=== PATIENT | male | born 1965 | race Caucasian/White ===

== ENCOUNTER 2018-01-30 13:57 | Emergency (ER) | payer SELFPAY ==
--- NOTE | 2018-01-30 14:49 | ER ---
Nurse's Notes [facility] Name: Arias Spann Age: 52 yrs Sex: Male : 1965 Arrival Date: 01/30/2018 Time: 14:02 Bed 24 Private MD: Diagnosis: Dermatitis, unspecified Presentation: 01/30 14:04 Presenting complaint: Patient states: i have a rash all over my body and it started a hj year ago; it hurts;. Transition of care: patient was not received from another setting of care. Onset of symptoms was January 30, 2018. Initial Sepsis Screen: Does the patient meet any 2 criteria? No. Patient's initial sepsis screen is negative. Does the patient have a suspected source of infection? No. Patient's initial sepsis screen is negative. Care prior to arrival: None. 14:04 Method Of Arrival: Ambulatory 14:04 Acuity: EDMUND 4 hj Triage Assessment: 14:05 General: Appears in no apparent distress. uncomfortable, Behavior is calm, cooperative, hj appropriate for age. Pain: Complains of pain in bosy where the rash. Historical: - Allergies: 14:05 No Known Allergies; hj - Home Meds: 14:05 None [Active]; hj - PMHx: 14:05 None; hj - PSHx: 14:05 None; hj - Immunization history:: Adult Immunizations up to date. - Family history:: not pertinent. Screenin:30 Abuse screen: Denies threats or abuse. Denies injuries from another. Nutritional aj1 screening: No deficits noted. Tuberculosis screening: No symptoms or risk factors identified. 15:58 Fall Risk None identified. aj1 Assessment: 14:30 General: Appears in no apparent distress. comfortable, Behavior is calm, cooperative, aj1 appropriate for age. Pain: Denies pain. Neuro: Level of Consciousness is awake, alert, obeys commands, Oriented to person, place, time, situation. Cardiovascular: Patient's skin is warm and dry. Respiratory: Airway is patent Respiratory effort is even, unlabored, Respiratory pattern is regular, symmetrical. GI: No signs and/or symptoms were reported involving the gastrointestinal system. : No signs and/or symptoms were reported regarding the genitourinary system. EENT: No signs and/or symptoms were reported regarding the EENT system. Derm: Rash noted that is itchy, on chest, pelvis, right arm, left arm, right leg and left leg. Musculoskeletal: Circulation, motion, and sensation intact. 15:00 Reassessment: Patient states that he showed Dr. Ash the rash on his arms, legs, aj1 and chest, but states that he also has a rash to his groin that he would like Dr. Ash to see. Notified Dr. Ash of patient request. 15:30 Reassessment: Patient appears in no apparent distress at this time. No changes from aj1 previously documented assessment. Patient and/or family updated on plan of care and expected duration. Pain level reassessed. Patient is alert, oriented x 3, equal unlabored respirations, skin warm/dry/pink. Vital Signs: 14:05 BP 117 / 78; Pulse 91; Resp 18; Temp 98.4(TE); Pulse Ox 98% on R/A; Weight 81.65 kg; hj Height 5 ft. 4 in. (162.56 cm); 15:58 BP 105 / 62; Pulse 88; Resp 18; Pulse Ox 99% ; aj1 14:05 Body Mass Index 30.90 (81.65 kg, 162.56 cm) ED Course: 14:02 Patient arrived in ED. sb2 14:05 Triage completed. 14:05 Arm band placed on left wrist. 14:23 Dia Mendoza, RN is Primary Nurse. aj1 14:30 Patient has correct armband on for positive identification. Bed in low position. Call aj1 light in reach. Side rails up X 1. 14:30 No provider procedures requiring assistance completed. aj1 14:34 Vito Ash MD is Attending Physician. [facility] 15:58 Patient did not have IV access during this emergency room visit. aj1 Administered Medications: No medications were administered Outcome: 14:48 Discharge ordered by . [facility] 15:58 Discharged to home ambulatory. aj1 15:58 Condition: good 15:58 Discharge instructions given to patient, Instructed on discharge instructions, follow up and referral plans. medication usage, Demonstrated understanding of instructions, follow-up care, medications, Prescriptions given X 2. 15:59 Patient left the ED. aj1 Signatures: Dia Mendoza RN RN aj Vito Ash MD MD cha Joaquin, Henry, RN RN Elizabeth Peralta sb2 Corrections: (The following items were deleted from the chart) 14:07 14:05 Pulse 91bpm; Resp 18bpm; Pulse Ox 98% RA; Temp 98.4F Temporal; 81.65 kg; Height 5 hj ft. 4 in.; BMI: 30.9; hj 15:56 15:54 General: Appears in no apparent distress. comfortable, Behavior is calm, aj1 cooperative, appropriate for age, aj1 15:54 Pain: Denies pain. aj1 aj 15:54 Neuro: Level of Consciousness is awake, alert, obeys commands, Oriented to aj1 person, place, time, situation, aj 15:54 Cardiovascular: Patient's skin is warm and dry. aj1 aj1 15:54 Respiratory: Airway is patent Respiratory effort is even, unlabored, Respiratory aj1 pattern is regular, symmetrical, aj1 15:54 GI: No signs and/or symptoms were reported involving the gastrointestinal system. aj1 aj1 15:54 : No signs and/or symptoms were reported regarding the genitourinary system. aj1aj1 15:54 EENT: No signs and/or symptoms were reported regarding the EENT system. aj1 aj1 15:54 Derm: Rash noted that is itchy, on chest, pelvis, right arm, left arm, right leg aj1 and left leg aj 15:54 Musculoskeletal: Circulation, motion, and sensation intact. aj1 aj1
--- NOTE | 2018-01-30 14:49 | EDPHYS ---
Physician Documentation [facility] Name: Arias Spann Age: 52 yrs Sex: Male : 1965 Arrival Date: 01/30/2018 Time: 14:02 Bed 24 Private MD: ED Physician Vito Ash HPI: 01/30 14:41 This 52 yrs old Male presents to ER via Ambulatory with complaints of Rash. [facility] 14:41 The patient's rash thought to be caused by Dermatitis. The rash is located on the [facility] chest, right foot, left foot, right arm and left arm. The rash can be described as crusted, patchy, raised. Onset: The symptoms/episode began/occurred 1 year(s) ago. Associated signs and symptoms: Pertinent positives: itching. Severity of symptoms: At their worst the symptoms were mild moderate in the emergency department the symptoms are unchanged. Treatment given at home: Benadryl, oral steroids. The patient has not experienced similar symptoms in the past. Historical: - Allergies: 14:05 No Known Allergies; hj - Home Meds: 14:05 None [Active]; hj - PMHx: 14:05 None; hj - PSHx: 14:05 None; hj - Immunization history:: Adult Immunizations up to date. - Family history:: not pertinent. ROS: 14:41 Constitutional: Negative for fever, chills, and weight loss, Eyes: Negative for injury, sahil pain, redness, and discharge, ENT: Negative for injury, pain, and discharge, Neck: Negative for injury, pain, and swelling, Cardiovascular: Negative for chest pain, palpitations, and edema, Respiratory: Negative for shortness of breath, cough, wheezing, and pleuritic chest pain, Abdomen/GI: Negative for abdominal pain, nausea, vomiting, diarrhea, and constipation, Back: Negative for injury and pain, : Negative for injury, bleeding, discharge, and swelling, Neuro: Negative for headache, weakness, numbness, tingling, and seizure, Psych: Negative for depression, anxiety, suicide ideation, homicidal ideation, and hallucinations, Allergy/Immunology: Negative for hives, rash, and allergies, Endocrine: Negative for neck swelling, polydipsia, polyuria, polyphagia, and marked weight changes, Hematologic/Lymphatic: Negative for swollen nodes, abnormal bleeding, and unusual bruising. 14:41 MS/extremity: Positive for pain, rash, of the chest, right hand, left hand, right leg and left leg. Exam: 14:41 Constitutional: This is a well developed, well nourished patient who is awake, alert, sahil and in no acute distress. Head/Face: Normocephalic, atraumatic. Eyes: Pupils equal round and reactive to light, extra-ocular motions intact. Lids and lashes normal. Conjunctiva and sclera are non-icteric and not injected. Cornea within normal limits. Periorbital areas with no swelling, redness, or edema. ENT: Nares patent. No nasal discharge, no septal abnormalities noted. Tympanic membranes are normal and external auditory canals are clear. Oropharynx with no redness, swelling, or masses, exudates, or evidence of obstruction, uvula midline. Mucous membranes moist. Neck: Trachea midline, no thyromegaly or masses palpated, and no cervical lymphadenopathy. Supple, full range of motion without nuchal rigidity, or vertebral point tenderness. No Meningismus. Chest/axilla: Normal chest wall appearance and motion. Nontender with no deformity. No lesions are appreciated. Cardiovascular: Regular rate and rhythm with a normal S1 and S2. No gallops, murmurs, or rubs. Normal PMI, no JVD. No pulse deficits. Respiratory: Lungs have equal breath sounds bilaterally, clear to auscultation and percussion. No rales, rhonchi or wheezes noted. No increased work of breathing, no retractions or nasal flaring. Abdomen/GI: Soft, non-tender, with normal bowel sounds. No distension or tympany. No guarding or rebound. No evidence of tenderness throughout. Back: No spinal tenderness. No costovertebral tenderness. Full range of motion. Male : Normal genitalia with no discharge or lesions. Neuro: Awake and alert, GCS 15, oriented to person, place, time, and situation. Cranial nerves II-XII grossly intact. Motor strength 5/5 in all extremities. Sensory grossly intact. Cerebellar exam normal. Normal gait. Psych: Awake, alert, with orientation to person, place and time. Behavior, mood, and affect are within normal limits. 14:41 Skin: Appearance: dry, thick skin. Vital Signs: 14:05 BP 117 / 78; Pulse 91; Resp 18; Temp 98.4(TE); Pulse Ox 98% on R/A; Weight 81.65 kg; Height 5 ft. 4 in. (162.56 cm); 15:58 BP 105 / 62; Pulse 88; Resp 18; Pulse Ox 99% ; aj1 14:05 Body Mass Index 30.90 (81.65 kg, 162.56 cm) MDM: 14:34 Patient medically screened. [facility] 01/30 14:41 Order name: Blood Glucose Level; Complete Time: 14:52 [facility] Administered Medications: No medications were administered Disposition: 01/30/18 14:48 Discharged to Home. Impression: Dermatitis, unspecified. - Condition is Stable. - Discharge Instructions: Contact Dermatitis, Hand Dermatitis, Rash, Rash, [id number], Contact Dermatitis, [id number], Hand Dermatitis, [id number]-mi-Mowl. - Prescriptions for Benadryl 25 mg Oral Capsule - take 1 capsule by ORAL route every 6 hours As needed; 30 tablet. Triamcinolone Acetonide 0.1 % Topical Ointment - apply 1 application by TOPICAL route every 12 hours As needed; 1 tube. - Medication Reconciliation Form, Thank You Letter, Antibiotic Education, Prescription Opioid Use form. - Follow up: Private Physician; When: 2 - 3 days; Reason: Recheck today's complaints, Continuance of care, Re-evaluation by your physician. - Problem is new. - Symptoms have improved. Signatures: Dia Mendoza RN RN aj1 Vito Ash MD MD cha Joaquin, Henry, RN RN Corrections: (The following items were deleted from the chart) 15:59 14:48 01/30/2018 14:48 Discharged to Home. Impression: Dermatitis, unspecified. aj1 Condition is Stable. Forms are Medication Reconciliation Form, Thank You Letter, Antibiotic Education, Prescription Opioid Use. Follow up: Private Physician; When: 2 - 3 days; Reason: Recheck today's complaints, Continuance of care, Re-evaluation by your physician. Problem is new. Symptoms have improved. sahil
== END 2018-01-30 15:59 | disposition home or self-care (01) ==
LOC: ER 13:57
DX: L30.9 Dermatitis, unspecified (principal)
CPT/HCPCS: 82962; 99282

== ENCOUNTER 2018-04-02 14:44 | Emergency (ER) | payer SELFPAY ==
--- NOTE | 2018-04-02 17:04 | EDPHYS ---
Physician Documentation [facility] Name: Arias Spann Age: 52 yrs Sex: Male : 1965 Arrival Date: 04/02/2018 Time: 14:46 Bed 11 Private MD: None, None ED Physician Martir Acosta HPI: 04/02 17:01 This 52 yrs old Male presents to ER via Ambulatory with complaints of Rash. jr8 17:01 The patient's rash thought to be caused by an unknown cause. The rash is located on the jr8 chest, pelvis, right hand, left hand, right leg and left leg. The rash can be described as plaque-like. Onset: The symptoms/episode began/occurred gradually. Associated signs and symptoms: Pertinent positives: itching. Severity of symptoms: At their worst the symptoms were moderate. The patient has experienced a previous episode. The patient has not recently seen a physician. Patient stated that he has had longstanding history of this rash for some time. Gets better with steroids but has run out. 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 Now has it in groin region . Historical: - Allergies: 15:34 No Known Allergies; aa5 - PMHx: 15:34 None; aa5 - PSHx: 15:34 None; aa5 - Immunization history:: Adult Immunizations unknown. - Social history:: Smoking status: Patient/guardian denies using tobacco. - Ebola Screening: : No symptoms or risks identified at this time. ROS: 17:01 Eyes: Negative for injury, pain, redness, and discharge, ENT: Negative for injury, jr8 pain, and discharge, Neck: Negative for injury, pain, and swelling, Cardiovascular: Negative for chest pain, palpitations, and edema, Respiratory: Negative for shortness of breath, cough, wheezing, and pleuritic chest pain, Abdomen/GI: Negative for abdominal pain, nausea, vomiting, diarrhea, and constipation, Back: Negative for injury and pain, MS/Extremity: Negative for injury and deformity, Neuro: Negative for headache, weakness, numbness, tingling, and seizure. 17:01 Skin: Positive for rash. Exam: 17:01 Head/Face: Normocephalic, atraumatic. Eyes: Pupils equal round and reactive to light, jr8 extra-ocular motions intact. Lids and lashes normal. Conjunctiva and sclera are non-icteric and not injected. Cornea within normal limits. Periorbital areas with no swelling, redness, or edema. ENT: Nares patent. No nasal discharge, no septal abnormalities noted. Tympanic membranes are normal and external auditory canals are clear. Oropharynx with no redness, swelling, or masses, exudates, or evidence of obstruction, uvula midline. Mucous membranes moist. Neck: Trachea midline, no thyromegaly or masses palpated, and no cervical lymphadenopathy. Supple, full range of motion without nuchal rigidity, or vertebral point tenderness. No Meningismus. Cardiovascular: Regular rate and rhythm with a normal S1 and S2. No gallops, murmurs, or rubs. Normal PMI, no JVD. No pulse deficits. Respiratory: Lungs have equal breath sounds bilaterally, clear to auscultation and percussion. No rales, rhonchi or wheezes noted. No increased work of breathing, no retractions or nasal flaring. Abdomen/GI: Soft, non-tender, with normal bowel sounds. No distension or tympany. No guarding or rebound. No evidence of tenderness throughout. Back: No spinal tenderness. No costovertebral tenderness. Full range of motion. MS/ Extremity: Pulses equal, no cyanosis. Neurovascular intact. Full, normal range of motion. Neuro: Awake and alert, GCS 15, oriented to person, place, time, and situation. Cranial nerves II-XII grossly intact. Motor strength 5/5 in all extremities. Sensory grossly intact. Cerebellar exam normal. Normal gait. 17:01 Skin: rash a moderate rash is noted, rash can be described as plaque-like, on the chest, right hand, left hand, right arm, left arm, right leg and left leg. Vital Signs: 15:34 BP 120 / 88; Pulse 98; Resp 18 S; Temp 98.0(TE); Pulse Ox 98% on R/A; Weight 77.11 kg aa5 (R); Height 5 ft. 2 in. (157.48 cm) (R); Pain 0/10; 15:34 Body Mass Index 31.09 (77.11 kg, 157.48 cm) aa5 MDM: 16:22 Patient medically screened. [facility] 17:01 Data reviewed: vital signs, nurses notes, and as a result, I will discharge patient. jr8 Data interpreted: Pulse oximetry: on room air is 98 %. Interpretation: normal. Counseling: I had a detailed discussion with the patient and/or guardian regarding: the historical points, exam findings, and any diagnostic results supporting the discharge/admit diagnosis, the need for outpatient follow up, a light adjuster, to return to the emergency department if symptoms worsen or persist or if there are any questions or concerns that arise at home. Administered Medications: No medications were administered Disposition: 17:57 Co-signature as Attending Physician, Martir Acosta MD I agree with the assessment and kdr plan of care. Disposition: 04/02/18 17:04 Discharged to Home. Impression: Rash and other nonspecific skin eruption. - Condition is Stable. - Discharge Instructions: Rash. - Prescriptions for Triamcinolone Acetonide 0.1 % Topical Ointment - apply 1 application by TOPICAL route every 12 hours As needed; 1 tube. - Medication Reconciliation Form, Thank You Letter, Antibiotic Education, Prescription Opioid Use form. - Follow up: Private Physician; When: 1 week; Reason: Recheck today's complaints, Continuance of care, Re-evaluation by your physician. - Problem is new. - Symptoms have improved. Signatures: Martir Acosta MD MD [facility] Elena Mensah RN RN aa5 Duke Francois PA PA jr8 Chris Herrera, ENOC RN rv Corrections: (The following items were deleted from the chart) 17:30 17:04 04/02/2018 17:04 Discharged to Home. Impression: Rash and other nonspecific skin rv eruption. Condition is Stable. Forms are Medication Reconciliation Form, Thank You Letter, Antibiotic Education, Prescription Opioid Use. Follow up: Private Physician; When: 1 week; Reason: Recheck today's complaints, Continuance of care, Re-evaluation by your physician. Problem is new. Symptoms have improved. jr8
--- NOTE | 2018-04-02 17:04 | ER ---
Nurse's Notes [facility] Name: Arias Spann Age: 52 yrs Sex: Male : 1965 Arrival Date: 04/02/2018 Time: 14:46 Bed 11 Private MD: None, None Diagnosis: Rash and other nonspecific skin eruption Presentation: 04/02 15:33 Presenting complaint: Patient states: "I have a rash on my private area that began 3 aa5 weeks ago and it's itchy". Transition of care: patient was not received from another setting of care. Onset of symptoms was March 2018. Risk Assessment: Do you want to hurt yourself or someone else? Patient reports no desire to harm self or others. Initial Sepsis Screen: Does the patient meet any 2 criteria? No. Patient's initial sepsis screen is negative. Does the patient have a suspected source of infection? No. Patient's initial sepsis screen is negative. Care prior to arrival: None. 15:33 Method Of Arrival: Ambulatory aa5 15:33 Acuity: EDMUND 5 aa5 Historical: - Allergies: 15:34 No Known Allergies; aa5 - PMHx: 15:34 None; aa5 - PSHx: 15:34 None; aa5 - Immunization history:: Adult Immunizations unknown. - Social history:: Smoking status: Patient/guardian denies using tobacco. - Ebola Screening: : No symptoms or risks identified at this time. Screenin:28 Abuse screen: Denies threats or abuse. Denies injuries from another. Nutritional rv screening: No deficits noted. Tuberculosis screening: No symptoms or risk factors identified. Fall Risk None identified. Assessment: 16:28 General: Appears in no apparent distress. comfortable, Behavior is calm, cooperative. rv Pain: Denies pain. Neuro: Level of Consciousness is awake, alert, obeys commands, Oriented to person, place, time, situation. Cardiovascular: Capillary refill < 3 seconds. Respiratory: Airway is patent. GI: No signs and/or symptoms were reported involving the gastrointestinal system. : No signs and/or symptoms were reported regarding the genitourinary system. EENT: No signs and/or symptoms were reported regarding the EENT system. Derm: Rash noted that is generalized. Vital Signs: 15:34 BP 120 / 88; Pulse 98; Resp 18 S; Temp 98.0(TE); Pulse Ox 98% on R/A; Weight 77.11 kg aa5 (R); Height 5 ft. 2 in. (157.48 cm) (R); Pain 0/10; 15:34 Body Mass Index 31.09 (77.11 kg, 157.48 cm) aa5 ED Course: 14:46 Patient arrived in ED. sb2 14:47 None, None is Private Physician. sb2 15:34 Triage completed. aa5 15:34 Arm band placed on. aa5 16:22 Duke Francois PA is PHCP. jr8 16:22 Martir Acosta MD is Attending Physician. jr8 16:29 Patient has correct armband on for positive identification. Bed in low position. Call rv light in reach. Side rails up X 1. 17:29 No provider procedures requiring assistance completed. Patient did not have IV access rv during this emergency room visit. Administered Medications: No medications were administered Outcome: 17:04 Discharge ordered by . jr8 17:30 Discharged to home ambulatory. rv 17:30 Condition: good 17:30 Discharge instructions given to patient, Instructed on discharge instructions, medication usage, Prescriptions given X 1. 17:30 Patient left the ED. rv Signatures: Elena Mensah, RN RN aa5 Duke Francois PA PA jr8 Elizabeth Peralta sb2 Chris Herrera RN RN rv
[2018-04-02] MEDS ORDERED: DEXAMETHASONE 10 MG/ML VIAL ONE (17:29)
== END 2018-04-02 17:30 | disposition home or self-care (01) ==
LOC: ER 14:44
DX: R21 Rash and other nonspecific skin eruption (principal)
CPT/HCPCS: 99282; J1100

== ENCOUNTER 2018-09-01 17:34 | Emergency (ER) | payer SELFPAY ==
--- NOTE | 2018-09-01 17:53 | EDPHYS ---
Physician Documentation [facility] Name: Arias Spann Age: 53 yrs Sex: Male : 1965 Arrival Date: 09/01/2018 Time: 17:37 Bed 17 Private MD: ED Physician Vito Ash HPI: 09/01 17:50 This 53 yrs old Male presents to ER via Ambulatory with complaints of Rash. nh 17:50 The patient's rash thought to be caused by Eczema. The rash is located on the body nh diffusely. The rash can be described as erythematous, patchy. Onset: The symptoms/episode began/occurred 4 month(s) ago. Associated signs and symptoms: Pertinent positives: itching, Pain. Severity of symptoms: At their worst the symptoms were moderate just prior to arrival, in the emergency department the symptoms are unchanged. The patient has experienced similar episodes in the past, chronically. The patient has not recently seen a physician. Historical: - Allergies: 17:43 No Known Allergies; sv - Home Meds: 17:43 None [Active]; sv - PMHx: 17:43 None; sv - PSHx: 17:43 None; sv - Immunization history:: Flu vaccine is not up to date. - Social history:: Smoking status: Patient/guardian denies using tobacco, Patient uses street drugs, marijuana. - Ebola Screening: : No symptoms or risks identified at this time. ROS: 17:50 Constitutional: Negative for fever, chills, and weight loss, Eyes: Negative for injury, nh pain, redness, and discharge, ENT: Negative for injury, pain, and discharge, Neck: Negative for injury, pain, and swelling, Cardiovascular: Negative for chest pain, palpitations, and edema, Respiratory: Negative for shortness of breath, cough, wheezing, and pleuritic chest pain, Abdomen/GI: Negative for abdominal pain, nausea, vomiting, diarrhea, and constipation, Back: Negative for injury and pain, : Negative for injury, bleeding, discharge, and swelling, MS/Extremity: Negative for injury and deformity, Neuro: Negative for headache, weakness, numbness, tingling, and seizure, Psych: Negative for depression, anxiety, suicide ideation, homicidal ideation, and hallucinations, Allergy/Immunology: Negative for hives, rash, and allergies, Endocrine: Negative for neck swelling, polydipsia, polyuria, polyphagia, and marked weight changes, Hematologic/Lymphatic: Negative for swollen nodes, abnormal bleeding, and unusual bruising. 17:50 Skin: Positive for rash, Negative for Exam: 17:50 Constitutional: This is a well developed, well nourished patient who is awake, alert, nh and in no acute distress. Head/Face: Normocephalic, atraumatic. Eyes: Pupils equal round and reactive to light, extra-ocular motions intact. Lids and lashes normal. Conjunctiva and sclera are non-icteric and not injected. Cornea within normal limits. Periorbital areas with no swelling, redness, or edema. ENT: Nares patent. No nasal discharge, no septal abnormalities noted. Tympanic membranes are normal and external auditory canals are clear. Oropharynx with no redness, swelling, or masses, exudates, or evidence of obstruction, uvula midline. Mucous membranes moist. Neck: Trachea midline, no thyromegaly or masses palpated, and no cervical lymphadenopathy. Supple, full range of motion without nuchal rigidity, or vertebral point tenderness. No Meningismus. Chest/axilla: Normal chest wall appearance and motion. Nontender with no deformity. No lesions are appreciated. Cardiovascular: Regular rate and rhythm with a normal S1 and S2. No gallops, murmurs, or rubs. Normal PMI, no JVD. No pulse deficits. Respiratory: Lungs have equal breath sounds bilaterally, clear to auscultation and percussion. No rales, rhonchi or wheezes noted. No increased work of breathing, no retractions or nasal flaring. Abdomen/GI: Soft, non-tender, with normal bowel sounds. No distension or tympany. No guarding or rebound. No evidence of tenderness throughout. Back: No spinal tenderness. No costovertebral tenderness. Full range of motion. MS/ Extremity: Pulses equal, no cyanosis. Neurovascular intact. Full, normal range of motion. Neuro: Awake and alert, GCS 15, oriented to person, place, time, and situation. Cranial nerves II-XII grossly intact. Motor strength 5/5 in all extremities. Sensory grossly intact. Cerebellar exam normal. Normal gait. Psych: Awake, alert, with orientation to person, place and time. Behavior, mood, and affect are within normal limits. 17:50 Skin: eczema, on the right hand and left hand. Vital Signs: 17:43 BP 129 / 90; Pulse 74; Resp 16; Temp 98.4; Pulse Ox 98% ; Weight 86.18 kg; Height 5 ft. sv 6 in. (167.64 cm); Pain 0/10; 17:43 Body Mass Index 30.67 (86.18 kg, 167.64 cm) sv MDM: 17:46 Patient medically screened. pa 17:46 Patient medically screened. [facility] 17:50 Data reviewed: vital signs, nurses notes, I have discussed the patient's pa presentation/case with the attending Emergency Department Physician; and as a result, I will discharge patient. Counseling: I had a detailed discussion with the patient and/or guardian regarding: the historical points, exam findings, and any diagnostic results supporting the discharge/admit diagnosis, to return to the emergency department if symptoms worsen or persist or if there are any questions or concerns that arise at home. Administered Medications: 18:03 Drug: Dexamethasone 10 mg Route: IM; Site: left deltoid; rv 18:03 Follow up: Response: Medication administered at discharge. rv Disposition: 09/01/18 17:53 Discharged to Home. Impression: Intrinsic (allergic) eczema. - Condition is Stable. - Discharge Instructions: Eczema. - Prescriptions for Triamcinolone Acetonide 0.1 % Topical Ointment - apply 1 application by TOPICAL route every 12 hours As needed; 1 tube. - Medication Reconciliation Form, Thank You Letter, Antibiotic Education, Prescription Opioid Use form. - Follow up: Private Physician; When: 2 - 3 days; Reason: Recheck today's complaints. - Problem is new. - Symptoms are unchanged. Addendum: 09/03/2018 06:29 Co-signature as Attending Physician, Vito Ash MD I agree with the assessment and [place] plan of care. Signatures: Angeles Thomas, RN RN Vito Delgadillo MD MD cha Cronk, Niki, CONDUIT HELPER CONDUIT HELPER pa Chris Herrera, ENCO RN rv Corrections: (The following items were deleted from the chart) 09/01 18:05 17:53 09/01/2018 17:53 Discharged to Home. Impression: Intrinsic (allergic) eczema. rv Condition is Stable. Forms are Medication Reconciliation Form, Thank You Letter, Antibiotic Education, Prescription Opioid Use. Follow up: Private Physician; When: 2 - 3 days; Reason: Recheck today's complaints. Problem is new. Symptoms are unchanged. nh
--- NOTE | 2018-09-01 17:53 | ER ---
Nurse's Notes [facility] Name: Arias Spann Age: 53 yrs Sex: Male : 1965 Arrival Date: 09/01/2018 Time: 17:37 Bed 17 Private MD: Diagnosis: Intrinsic (allergic) eczema Presentation: 09/01 17:42 Presenting complaint: Patient states: bilateral hand and groin rash/itching x 2 months. sv Transition of care: patient was not received from another setting of care. Onset of symptoms was June 2018. Care prior to arrival: None. 17:42 Method Of Arrival: Ambulatory sv 17:42 Acuity: EDMUND 5 sv 18:05 Risk Assessment: Do you want to hurt yourself or someone else? Patient reports no rv desire to harm self or others. Initial Sepsis Screen: Does the patient meet any 2 criteria? No. Patient's initial sepsis screen is negative. Does the patient have a suspected source of infection? No. Patient's initial sepsis screen is negative. Triage Assessment: 17:45 General: Appears in no apparent distress. uncomfortable, Behavior is calm, cooperative. sv Pain: Complains of pain in pelvis, right hand and left hand Quality of pain is described as itching. Neuro: Level of Consciousness is awake, alert, obeys commands, Oriented to person, place, time, situation, Moves all extremities. Full function Gait is steady, Speech is normal. Respiratory: Respiratory effort is even, unlabored, Respiratory pattern is regular, symmetrical. Derm: Rash noted that is itchy, on pelvis, right hand and left hand. Historical: - Allergies: 17:43 No Known Allergies; sv - Home Meds: 17:43 None [Active]; sv - PMHx: 17:43 None; sv - PSHx: 17:43 None; sv - Immunization history:: Flu vaccine is not up to date. - Social history:: Smoking status: Patient/guardian denies using tobacco, Patient uses street drugs, marijuana. - Ebola Screening: : No symptoms or risks identified at this time. Screenin:04 Abuse screen: Denies threats or abuse. Denies injuries from another. Nutritional rv screening: No deficits noted. Tuberculosis screening: No symptoms or risk factors identified. Fall Risk None identified. Assessment: 18:03 General: Appears in no apparent distress. comfortable, Behavior is calm, cooperative. rv Pain: Denies pain. Neuro: Level of Consciousness is awake, alert, obeys commands, Oriented to person, place, time, situation. Cardiovascular: Capillary refill < 3 seconds. Respiratory: Airway is patent. GI: No signs and/or symptoms were reported involving the gastrointestinal system. : No signs and/or symptoms were reported regarding the genitourinary system. EENT: No signs and/or symptoms were reported regarding the EENT system. Derm: Rash noted that is itchy, red, on right hand and left hand, GROIN AREA. Vital Signs: 17:43 BP 129 / 90; Pulse 74; Resp 16; Temp 98.4; Pulse Ox 98% ; Weight 86.18 kg; Height 5 ft. sv 6 in. (167.64 cm); Pain 0/10; 17:43 Body Mass Index 30.67 (86.18 kg, 167.64 cm) sv ED Course: 17:37 Patient arrived in ED. mr 17:43 Triage completed. sv 17:45 Arm band placed on. sv 17:46 Jazzmine Nagy FNP is PSYCHIATRICP. nh 17:46 Vito Ash MD is Attending Physician. nh 18:04 No provider procedures requiring assistance completed. Patient did not have IV access rv during this emergency room visit. 18:05 Patient has correct armband on for positive identification. Bed in low position. Call rv light in reach. Side rails up X 1. Administered Medications: 18:03 Drug: Dexamethasone 10 mg Route: IM; Site: left deltoid; rv 18:03 Follow up: Response: Medication administered at discharge. rv Outcome: 17:53 Discharge ordered by . nh 18:05 Discharged to home ambulatory. rv 18:05 Condition: good 18:05 Discharge instructions given to patient, Instructed on discharge instructions, follow up and referral plans. medication usage, Demonstrated understanding of instructions, follow-up care, medications, Prescriptions given X 1. 18:05 Patient left the ED. rv Signatures: Angeles Thomas RN RN Jazzmine Nagy FNP DESIGN TECHNOLOGY PROFESSOR dc YunierMakeda Chris Herrera RN RN rv Corrections: (The following items were deleted from the chart) 17:46 17:43 Pulse 74bpm; Resp 16bpm; Pulse Ox 98%; Temp 98.4F; 86.18 kg; Height 5 ft. 6 in.; sv BMI: 30.6; Pain 0/10; sv
[2018-09-01] MEDS ORDERED: DEXAMETHASONE 10 MG/ML VIAL ONE (18:02)
== END 2018-09-01 18:05 | disposition home or self-care (01) ==
LOC: ER 17:34
DX: L20.84 Intrinsic (allergic) eczema (principal)
CPT/HCPCS: 96372; 99283; J1100

== ENCOUNTER 2019-02-11 19:43 | Emergency (ER) | payer SELFPAY ==
--- NOTE | 2019-02-11 21:10 | EDPHYS ---
Physician Documentation [facility] Name: Arias Spann Age: 53 yrs Sex: Male : 1965 Arrival Date: 02/11/2019 Time: 19:47 Bed 12 Private MD: ED Physician Vito Ash HPI: 02/11 21:05 This 53 yrs old Male presents to ER via Ambulatory with complaints of Rash. cp 21:05 The patient's rash thought to be caused by Eczema. The rash is located on the body cp diffusely. 21:05 The rash can be described as erythematous, patchy. Onset: The symptoms/episode cp began/occurred chronically. Associated signs and symptoms: Pertinent negatives: burning sensation, difficulty breathing, fever. The patient has experienced similar episodes in the past, chronically, Patient reports he was seen in [facility] ED in the past and given steroid shot and prescription for steroid cream that helped. Historical: - Allergies: 19:55 No Known Allergies; ed1 - Home Meds: 19:55 None [Active]; ed1 - PMHx: 19:55 None; ed1 - PSHx: 19:55 None; ed1 - Immunization history:: Adult Immunizations up to date. - Social history:: Smoking status: Patient uses tobacco products, denies chronic smoking, but will smoke occasionally. - Ebola Screening: : Patient denies travel to an Ebola-affected area in the 21 days before illness onset No symptoms or risks identified at this time. ROS: 21:06 Constitutional: Negative for body aches, chills, fever, poor PO intake. cp 21:06 Eyes: Negative for injury, pain, redness, and discharge. cp 21:06 ENT: Negative for drainage from ear(s), ear pain, sore throat, difficulty swallowing, difficulty handling secretions. 21:06 Cardiovascular: Negative for chest pain. 21:06 Respiratory: Negative for cough, shortness of breath, wheezing. 21:06 Abdomen/GI: Negative for abdominal pain, nausea, vomiting, and diarrhea. 21:06 Skin: Positive for rash, diffusely. 21:06 All other systems are negative. Exam: 21:07 Constitutional: The patient appears in no acute distress, alert, awake, non-toxic, well cp developed, well nourished. 21:07 Head/face: Exam is negative for obvious evidence of injury or deformity. cp 21:07 Eyes: Conjunctiva: normal, no exudate, no injection, Sclera: no appreciated abnormality, Lids and lashes: appear normal, bilaterally. 21:07 ENT: External ear(s): are unremarkable, Nose: is normal, Mouth: Lips: moist, Oral mucosa: moist, Posterior pharynx: Airway: no evidence of obstruction, patent. 21:07 Cardiovascular: Rate: normal. 21:07 Respiratory: the patient does not display signs of respiratory distress, Respirations: normal, no use of accessory muscles, no retractions, no splinting, no tachypnea. 21:07 Abdomen/GI: Exam negative for discomfort, distension, guarding. 21:07 Skin: consistent with eczema, and is diffusely located. Vital Signs: 19:55 BP 140 / 94; Pulse 105; Resp 20; Temp 97.8; Pulse Ox 96% on R/A; Weight 86.18 kg; ed1 Height 5 ft. 4 in. (162.56 cm); Pain 0/10; 21:45 BP 137 / 89; Pulse 95; Resp 18; Pulse Ox 97% on R/A; aj1 19:55 Body Mass Index 32.61 (86.18 kg, 162.56 cm) ed1 MDM: 20:41 Patient medically screened. cp 21:07 Differential diagnosis: impetigo, varicella, allergic reaction, scabies, tinea. cp 21:09 Data reviewed: vital signs, nurses notes, and as a result, I will discharge patient. 21:09 Counseling: I had a detailed discussion with the patient and/or guardian regarding: the cp historical points, exam findings, and any diagnostic results supporting the discharge/admit diagnosis, the need for outpatient follow up, for definitive care, a program review director, to return to the emergency department if symptoms worsen or persist or if there are any questions or concerns that arise at home. Administered Medications: 21:28 Drug: SOLU-Medrol 40 mg Route: IM; Site: right deltoid; aj1 21:45 Follow up: Response: No adverse reaction aj1 Disposition: 21:50 Chart complete. Disposition: 02/11/19 21:09 Discharged to Home. Impression: Intrinsic (allergic) eczema. - Condition is Stable. - Discharge Instructions: Eczema. - Prescriptions for Triamcinolone Acetonide 0.5 % Topical Cream - apply 1 application by TOPICAL route 2 times per day As needed apply to areas of rash except face as directed; 1 tube. - Medication Reconciliation Form, Thank You Letter, Antibiotic Education, Prescription Opioid Use form. - Follow up: Private Physician; When: 2 - 3 days; Reason: Recheck today's complaints. - Problem is chronic. - Symptoms have improved. Addendum: 02/13/2019 06:39 Co-signature as Attending Physician, Vito Ash MD I agree with the assessment and [place] plan of care. Signatures: Dia Mendoza RN RN aj1 Vito Ash MD MD cha Riggs, Erika RN RN ed1 Vito Lopez PA PA cp Corrections: (The following items were deleted from the chart) 02/11 21:46 21:09 02/11/2019 21:09 Discharged to Home. Impression: Intrinsic (allergic) eczema. aj1 Condition is Stable. Forms are Medication Reconciliation Form, Thank You Letter, Antibiotic Education, Prescription Opioid Use. Follow up: Private Physician; When: 2 - 3 days; Reason: Recheck today's complaints. Problem is chronic. Symptoms have improved. cp
--- NOTE | 2019-02-11 21:10 | ER ---
Nurse's Notes [facility] Name: Arias Spann Age: 53 yrs Sex: Male : 1965 Arrival Date: 02/11/2019 Time: 19:47 Bed 12 Private MD: Diagnosis: Intrinsic (allergic) eczema Presentation: 02/11 19:54 Presenting complaint: Patient states: Same thing as last time. I have like psoriasis or ed1 something and I don't have a regular doctor. Transition of care: patient was not received from another setting of care. Onset of symptoms was February 11, 2019. Risk Assessment: Do you want to hurt yourself or someone else? Patient reports no desire to harm self or others. Initial Sepsis Screen: Does the patient meet any 2 criteria? No. Patient's initial sepsis screen is negative. Does the patient have a suspected source of infection? No. Patient's initial sepsis screen is negative. Care prior to arrival: None. 19:54 Method Of Arrival: Ambulatory ed1 19:54 Acuity: EDMUND 5 ed1 Triage Assessment: 19:55 General: Appears in no apparent distress. Behavior is calm, cooperative. Pain: Denies ed1 pain. Derm: Reports itching. Historical: - Allergies: 19:55 No Known Allergies; ed1 - Home Meds: 19:55 None [Active]; ed1 - PMHx: 19:55 None; ed1 - PSHx: 19:55 None; ed1 - Immunization history:: Adult Immunizations up to date. - Social history:: Smoking status: Patient uses tobacco products, denies chronic smoking, but will smoke occasionally. - Ebola Screening: : Patient denies travel to an Ebola-affected area in the 21 days before illness onset No symptoms or risks identified at this time. Screenin:55 Abuse screen: Denies threats or abuse. Denies injuries from another. Nutritional aj1 screening: No deficits noted. Tuberculosis screening: No symptoms or risk factors identified. 21:46 Fall Risk None identified. aj1 Assessment: 20:55 General: Appears in no apparent distress. comfortable, Behavior is calm, cooperative, aj1 appropriate for age. Pain: Denies pain. Neuro: Level of Consciousness is awake, alert, obeys commands. Cardiovascular: Patient's skin is warm and dry. Respiratory: Airway is patent Respiratory effort is even, unlabored, Respiratory pattern is regular, symmetrical. GI: No signs and/or symptoms were reported involving the gastrointestinal system. : No signs and/or symptoms were reported regarding the genitourinary system. EENT: No signs and/or symptoms were reported regarding the EENT system. Derm: Rash noted that is on right hand and left hand. Musculoskeletal: No signs and/or symptoms reported regarding the musculoskeletal system. Circulation, motion, and sensation intact. Vital Signs: 19:55 BP 140 / 94; Pulse 105; Resp 20; Temp 97.8; Pulse Ox 96% on R/A; Weight 86.18 kg; ed1 Height 5 ft. 4 in. (162.56 cm); Pain 0/10; 21:45 BP 137 / 89; Pulse 95; Resp 18; Pulse Ox 97% on R/A; aj1 19:55 Body Mass Index 32.61 (86.18 kg, 162.56 cm) ed1 ED Course: 19:47 Patient arrived in ED. am2 19:55 Triage completed. ed1 19:55 Arm band placed on. ed1 20:41 Vito Lopez PA is PHCP. cp 20:41 Vito Ash MD is Attending Physician. cp 20:54 Dia Mendoza, RN is Primary Nurse. aj1 20:55 Patient has correct armband on for positive identification. aj1 20:56 No provider procedures requiring assistance completed. Patient did not have IV access aj1 during this emergency room visit. Administered Medications: 21:28 Drug: SOLU-Medrol 40 mg Route: IM; Site: right deltoid; aj1 21:45 Follow up: Response: No adverse reaction aj1 Outcome: 21:09 Discharge ordered by . cp 21:45 Discharged to home ambulatory. aj1 21:45 Condition: good 21:45 Discharge instructions given to patient, Instructed on discharge instructions, follow up and referral plans. medication usage, Demonstrated understanding of instructions, follow-up care, medications, Prescriptions given X 1. 21:46 Patient left the ED. aj1 Signatures: Dia Mendoza, RN RN aj1 Madonna Sung RN RN ed1 Vito Lopez PA PA Sintia Francisco am2
[2019-02-11] MEDS ORDERED: METHYLPREDNISOLONE 40 MG INJ ONE (21:36)
== END 2019-02-11 21:46 | disposition home or self-care (01) ==
LOC: ER 19:43
DX: L20.84 Intrinsic (allergic) eczema (principal); Z72.0 Tobacco use
CPT/HCPCS: 96372; 99283; J2920

== ENCOUNTER 2021-08-25 11:34 | Emergency (ER) | payer SELFPAY ==
--- NOTE | 2021-08-25 13:13 | EDPHYS ---
Physician Documentation [facility] Name: Arias Spann Age: 56 yrs Sex: Male : 1965 Arrival Date: 08/25/2021 Time: 11:34 Bed Waiting Private MD: Vito Laureano HPI: 08/25 13:10 This 56 yrs old Male presents to ER via Ambulatory with complaints of Skin Problem. jmm 13:10 Onset: The symptoms/episode began/occurred gradually, 1 year(s) ago. Associated signs jmm and symptoms: Pertinent negatives: fever, swelling of lips, swelling of throat, swelling of tongue. The patient has experienced similar episodes in the past, chronically. Historical: - Allergies: 13:09 No Known Allergies; vg1 - Home Meds: 13:09 None [Active]; vg1 - PMHx: 13:09 Hep C; vg1 - PSHx: 13:09 None; vg1 - Immunization history:: Client reports having NOT received the Covid vaccine. - Social history:: Smoking status: Patient reports the use of cigarette tobacco products, denies chronic smoking, but will smoke occasionally. ROS: 13:10 Constitutional: Negative for fever, chills, and weight loss, Cardiovascular: Negative jmm for chest pain, palpitations, and edema. 13:10 Respiratory: Negative for shortness of breath. 13:10 All other systems are negative. Exam: 13:10 Constitutional: This is a well developed, well nourished patient who is awake, alert, jmm and in no acute distress. Head/Face: atraumatic. Eyes: EOMI, no conjunctival erythema appreciated ENT: Moist Mucus Membranes Neck: Trachea midline, Supple Chest/axilla: Normal chest wall appearance and motion. Cardiovascular: Regular rate and rhythm. No edema appreciated Respiratory: Normal respirations, no respiratory distress appreciated Abdomen/GI: Non distended, soft Back: Normal ROM 13:10 Skin: on the right arm and left arm. 13:10 Neuro: Orientation: is normal, Mentation: is normal, Memory: is normal. 13:10 Psych: Behavior/mood is pleasant, cooperative. Vital Signs: 13:06 BP 155 / 82; Pulse 90; Resp 16; Temp 98.2; Pulse Ox 98% ; Weight 79.38 kg; Height 5 ft. vg1 3 in. (160.02 cm); Pain 8/; 13:06 Body Mass Index 31.00 (79.38 kg, 160.02 cm) vg1 MDM: 13:08 Patient medically screened. [facility] 13:10 Data reviewed: vital signs, nurses notes. Counseling: I had a detailed discussion with [facility] the patient and/or guardian regarding: the historical points, exam findings, and any diagnostic results supporting the discharge/admit diagnosis, the need for outpatient follow up, to return to the emergency department if symptoms worsen or persist or if there are any questions or concerns that arise at home. Administered Medications: No medications were administered Disposition: 08/26 09:16 Co-signature as Attending Physician, Vito Ash MD I agree with the assessment and [facility] plan of care. Disposition Summary: 08/25/21 13:12 Discharge Ordered Location: Home [facility] Condition: Stable jm Diagnosis - Rash and other nonspecific skin eruption [facility] Followup: [facility] - With: Private Physician - When: 2 - 3 days - Reason: Recheck today's complaints, Continuance of care, Re-evaluation by your physician Discharge Instructions: - Discharge Summary Sheet [facility] - Rash, Adult [facility] Forms: - Medication Reconciliation Form [facility] - Thank You Letter [facility] - Antibiotic Education [facility] - Prescription Opioid Use [facility] Prescriptions: - Prednisone 20 mg Oral Tablet - take 3 tablets by ORAL route once daily 12 days Please please take 3 tabs by [facility] mouth daily for 3 days, then take 2 tablets by mouth daily for 3 days, then take 1 tablet by mouth daily for 3 days, then take 1/2 tablet by mouth daily for 3 days; 20 tablet; Refills: 0, Product Selection Permitted Signatures: Vito Ash MD MD cha Mickail, Joel, PA PA Ania Gan, RN RN vg1 Corrections: (The following items were deleted from the chart) 08/25 13:10 13:09 PMHx: None; vg1 vg1
--- NOTE | 2021-08-25 13:13 | ER ---
Nurse's Notes [facility] Name: Arias Spann Age: 56 yrs Sex: Male : 1965 Arrival Date: 08/25/2021 Time: 11:34 Bed Waiting Private MD: Diagnosis: Rash and other nonspecific skin eruption Presentation: 08/25 13:06 Chief complaint: Patient states: 'dry and scaly skin' in left and right arm and hands vg1 for 3 years. States itching. Coronavirus screen: Vaccine status: Patient reports being unvaccinated. Client denies travel out of the [place] in the last 14 days. Ebola Screen: Patient negative for fever greater than or equal to 101.5 degrees Fahrenheit, and additional compatible Ebola Virus Disease symptoms. Initial Sepsis Screen: Does the patient meet any 2 criteria? No. Patient's initial sepsis screen is negative. Does the patient have a suspected source of infection? No. Patient's initial sepsis screen is negative. Risk Assessment: Do you want to hurt yourself or someone else? Patient reports no desire to harm self or others. Onset of symptoms was August 25, 2021. 13:06 Method Of Arrival: Ambulatory vg1 13:06 Acuity: EDMUND 4 vg1 Triage Assessment: 13:09 General: Appears in no apparent distress. uncomfortable, Behavior is calm, cooperative. vg1 Pain: Complains of pain in right hand, left hand, right arm and left arm. Derm: Reports itching, pain since x 3 years. Historical: - Allergies: 13:09 No Known Allergies; vg1 - Home Meds: 13:09 None [Active]; vg1 - PMHx: 13:09 Hep C; vg1 - PSHx: 13:09 None; vg1 - Immunization history:: Client reports having NOT received the Covid vaccine. - Social history:: Smoking status: Patient reports the use of cigarette tobacco products, denies chronic smoking, but will smoke occasionally. Vital Signs: 13:06 BP 155 / 82; Pulse 90; Resp 16; Temp 98.2; Pulse Ox 98% ; Weight 79.38 kg; Height 5 ft. vg1 3 in. (160.02 cm); Pain 8/10; 13:06 Body Mass Index 31.00 (79.38 kg, 160.02 cm) vg1 ED Course: 11:34 Patient arrived in ED. am2 13:08 Robert Lyons PA is PHCP. hernán 13:08 Vito Ash MD is Attending Physician. bandar 13:09 Triage completed. vg1 13:09 Arm band placed on. vg1 Administered Medications: No medications were administered Outcome: 13:12 Discharge ordered by . [facility] 13:29 Patient left the ED. vg1 Signatures: Robert Lyons PA PA Sintia Conley am2 Ania Frederick, RN RN vg1 Corrections: (The following items were deleted from the chart) 13:10 13:09 PMHx: None; vg1 vg1
[2021-08-25 13:34] VITALS: BP 155/82; TEMP 98.2; O2SAT 98
== END 2021-08-25 13:29 | disposition home or self-care (01) ==
LOC: ER 11:34
DX: R21 Rash and other nonspecific skin eruption (principal)
CPT/HCPCS: 99281

== ENCOUNTER 2023-10-08 16:42 | Inpatient (IN) | payer SELFPAY ==
[2023-10-08 17:43] LABS: Absolute Lymphocytes (CBC) 3.5 K/uL (0.7-4.9); Lymphocytes % 24.4 % (15.3-44.8); MCV 91.8 fL (80-100); MPV 7.9 fL (7.6-11.3); Platelets 267 thou/uL (152-406); Protime INR 1.23; RBC Red Blood Cell Count 5.78 M/uL (4.33-5.43)
[2023-10-08 17:49] LABS: Potassium 4.4 mEq/L (3.5-5.1)
--- NOTE | 2023-10-08 18:04 | RAD REPORT ---
EXAM DESCRIPTION: RAD - Chest Single View - 10/08/2023 5:57 pm CLINICAL HISTORY: difficulty swallowing Chest pain. COMPARISON: <Comparisons> FINDINGS: Portable technique limits examination quality. The lungs are emphysematous grossly clear. The heart is normal in size. No displaced fractures. IMPRESSION: COPD. The USPSTF recommends annual screening for lung cancer with low-dose CT (LDCT) in adults aged 50 to 80 years who have a 20 pack-year smoking history and currently smoke or have quit within the past 15 years.
[2023-10-08] MEDS ORDERED: ONDANSETRON 4 MG/2 ML VIAL ONE (18:05)
[2023-10-08] MEDS ORDERED: MORPHINE 4 MG/ML SYR ONE (18:05)
--- NOTE | 2023-10-08 18:47 | RAD REPORT ---
EXAM DESCRIPTION: CT - Soft Tissue Neck W/Contr CLINICAL HISTORY: dysphagia;Sore throat COMPARISON: <Comparisons> TECHNIQUE All CT scans are performed using dose optimization technique as appropriate and may includ e automated exposure control or mA/KV adjustment according to patient size. FINDINGS: There is a large irregular thick walled lesion in the left tonsil region measuring 25 x 25 mm. It demonstrates a thick rind of approximately 8 mm with internal necrosis or fluid component. Co uld be abscess or related to neoplasia. Mild fluid is seen extending into the left fossa of Rosenmull er. Moderate sinus thickening on the left involving the maxillary antrum. Several enlarged lymph nodes ar e present in the neck bilaterally presumably reactive. IMPRESSION: Thick walled irregular left tonsillar lesion measuring 25 mm as detailed. This may be ne oplastic or infectious in origin. Recommend direct visualization.
[2023-10-08] MEDS ORDERED: CEFTRIAXONE 1000 MG/VIAL ONE (19:14)
[2023-10-08] MEDS ORDERED: CLINDAMYCIN 900MG/D5W 900 MG/50 ML IVPB IV ONE (19:14)
[2023-10-08] MEDS ORDERED: dexAMETHasone 10 MG/ML VIAL ONE (19:14)
[2023-10-08] MEDS ORDERED: NA CHLORIDE 0.9% 1,000 ML ONE (19:15)
[2023-10-08] MEDS ORDERED: NA CHLORIDE 0.9% 50 ML ONE (19:15)
--- NOTE | 2023-10-08 19:29 | EDPHYS ---
Physician Documentation [facility] Name: Arias Spann Age: 58 yrs Sex: Male : 1965 Arrival Date: 10/08/2023 Time: 16:42 Bed 20 Private MD: ED Physician Vito Ash HPI: 10/08 17:20 This 58 yrs old Male presents to ER via Ambulatory with complaints of Sore Throat, Body cp aches. 17:20 The patient presents with sore throat, dysphagia, of both solids and liquids. The cp patient describes throat pain as constant. Onset: The symptoms/episode began/occurred 1 week(s) ago, and became worse 3 day(s) ago. Severity of symptoms: in the emergency department the symptoms are unchanged, despite home interventions. Associated signs and symptoms: Pertinent positives: Sore throat Pertinent negatives chest pain, diarrhea, fever, vomiting. Historical: - Allergies: 17:09 No Known Allergies; cm10 - PMHx: 17:09 HEP C; cm10 - Immunization history:: Adult Immunizations not up to date. - Social history:: Smoking status: Patient denies any tobacco usage or history of. Patient uses street drugs, marijuana. ROS: 17:25 Constitutional: Negative for body aches, chills, fever, poor PO intake, cp 17:25 Eyes: Negative for injury, pain, redness, and discharge, cp 17:25 ENT: Positive for difficulty swallowing, ear pain, sore throat, Negative for drainage from ear(s), difficulty handling secretions, 17:25 Cardiovascular: Negative for chest pain, 17:25 Respiratory: Negative for shortness of breath, wheezing, 17:25 Abdomen/GI: Negative for abdominal pain, vomiting, diarrhea, constipation, 17:25 Neuro: Negative for altered mental status, headache, weakness, 17:25 All other systems are negative, Exam: 17:30 Constitutional: The patient appears in no acute distress, alert, awake, non-toxic, well cp developed, well nourished, uncomfortable, 17:30 Head/Face: Normocephalic, atraumatic. cp 17:30 Eyes: Periorbital structures: appear normal, Conjunctiva: normal, no exudate, no injection, Sclera: no appreciated abnormality, Lids and lashes: appear normal, bilaterally, 17:30 ENT: External ear(s): are unremarkable, Ear canal(s): are normal, clear, TM's: dullness, bilaterally, Nose: is normal, Mouth: Lips: moist, Oral mucosa: moist, Posterior pharynx: Airway: no evidence of obstruction, patent, Tonsils: enlarged on the left, with erythema, Uvula: shifted to patient's right, erythema, that is moderate, Voice: is muffled, 17:30 Neck: ROM/movement: is normal, is supple, no range of motions limitations, no meningismus, no nuchal rigidity, 17:30 Chest/axilla: Inspection: normal, 17:30 Cardiovascular: Rate: tachycardic, Rhythm: regular, 17:30 Respiratory: the patient does not display signs of respiratory distress, Respirations: normal, no use of accessory muscles, no retractions, labored breathing, is not present, Breath sounds: are clear throughout, no decreased breath sounds, no stridor, no wheezing, 17:30 Abdomen/GI: Inspection: abdomen appears normal, Palpation: abdomen is soft and non-tender, in all quadrants, 17:38 ECG was reviewed by the Attending Physician. Vital Signs: 17:08 BP 170 / 94; Pulse 111; Resp 18; Temp 98.1; Pulse Ox 98% on R/A; Weight 81.65 kg; cm10 Height 5 ft. 6 in. ; Pain 8/10; 17:38 BP 147 / 94; Pulse 103; Resp 16 S; Pulse Ox 98% on R/A; kc6 20:01 BP 143 / 95; Pulse 103; Resp 18 S; Pulse Ox 100% on R/A; jw7 21:29 BP 119 / 78; Pulse 96; Resp 17 S; Pulse Ox 95% on R/A; jw7 17:08 Body Mass Index 29.05 (81.65 kg, 167.64 cm) cm10 17:08 Pain Scale: Adult cm10 MDM: 17:08 Patient medically screened. sahil 19:15 Data reviewed: vital signs, nurses notes, lab test result(s), EKG, radiologic studies, cp CT scan, plain films, and as a result, I will admit patient. 19:18 ED course: consult with DR Montiel who will see patient and requests admission to hospitalist services. 19:28 I considered the following discharge prescriptions or medication management in the emergency department Medications were administered in the Emergency Department. See MAR. 19:28 Management of patient was discussed with the following: Hospitalist: ti Bond admit patient after discussion. Counseling: I had a detailed discussion with the patient and/or guardian regarding the historical points, exam findings, and any diagnostic results supporting the discharge/admit diagnosis, lab results, radiology results, the need for further work-up and treatment in the hospital. 10/08 17:15 Order name: Basic Metabolic Panel; Complete Time: 17:50 10/08 18:52 Interpretation: Normal except: NA 133; BUN 6. 10/08 17:15 Order name: CBC with Diff; Complete Time: 17:50 10/08 17:15 Order name: PT-INR; Complete Time: 17:50 10/08 18:27 Order name: Lactate w/ 2H reflex if indic. 10/08 18:27 Order name: Blood Culture Adult (2) 10/08 19:47 Order name: CBC with Automated Diff [facility] 10/08 19:47 Order name: CBC with Automated Diff [facility] 10/08 19:47 Order name: Comprehensive Metabolic Panel [facility] 10/08 19:47 Order name: Comprehensive Metabolic Panel [facility] 10/08 17:15 Order name: XRAY Chest (1 view); Complete Time: 18:51 10/08 17:51 Order name: CT Soft Tissue Neck W/contr; Complete Time: 18:51 10/08 17:15 Order name: EKG; Complete Time: 17:15 10/08 19:47 Order name: CONS Physician Consult [facility] 10/08 17:15 Order name: Cardiac monitoring; Complete Time: 17:36 10/08 17:15 Order name: EKG - Nurse/Tech; Complete Time: 17:36 10/08 17:15 Order name: IV Saline Lock; Complete Time: 17:36 10/08 17:15 Order name: Labs collected and sent; Complete Time: 17:36 10/08 17:15 Order name: O2 Per Protocol; Complete Time: 17:36 10/08 17:15 Order name: O2 Sat Monitoring; Complete Time: 17:36 cp EC:38 Rate is 98 beats/min. Rhythm is regular. WA interval is normal. QRS interval is normal. cp QT interval is normal. T waves are Inverted in lead aVR. Interpreted by me. Reviewed by me. Administered Medications: 18:25 Drug: morphine IVP or IV 4 mg IVP once over 4 mins Route: IVP; Infused Over: 4 mins; kc6 Site: right antecubital; 19:09 Follow up: Response: No adverse reaction; Pain is decreased; RASS: Alert and Calm (0) 6 18:26 Drug: Ondansetron IVP 4 mg IVP once; over 2 minutes Route: IVP; Site: right antecubital;kc6 19:10 Follow up: Response: No adverse reaction 6 19:35 Drug: NS 0.9% IV 1000 ml IV at 1 bolus Per protocol; 1000 mL bolus Route: IV; Rate: 1 jw7 bolus; Site: right antecubital; 20:35 Follow up: Response: No adverse reaction; IV Status: Infusion continued upon admission; jw7 IV Intake: 600ml 19:35 Drug: Rocephin IV 1 grams IV at calculated rate once; Given slow IV push per pharmacy jw7 instructions Route: IV; Rate: calculated rate; Site: right antecubital; 20:04 Follow up: Response: No adverse reaction; IV Status: Completed infusion; IV Intake: [id number] 19:35 Drug: Decadron - Dexamethasone IVP 10 mg IVP once Route: IVP; Site: right antecubital; jw7 20:04 Follow up: Response: No adverse reaction jw7 19:50 Drug: Clindamycin IVPB 900 mg IVPB once over 30 mins; (mix in 50 mL) Route: IVPB; jw7 Infused Over: 30 mins; Site: right antecubital; 20:35 Follow up: Response: No adverse reaction; IV Status: Completed infusion; IV Intake: [id number] Disposition Summary: 10/08/23 19:29 Hospitalization Ordered Notes: Hospitalization Status: Observation cp Provider: Mat Drake [facility] cp Condition: Stable cp Problem: new cp Symptoms: have improved cp Bed/Room Type: Standard cp Room Assignment: 216(10/08/23 19:55) sp Diagnosis - Left Peritonsillar Mass vs Abscess cp Forms: - Medication Reconciliation Form cp - SBAR form cp - Leadership Thank You Letter cp Signatures: Dispatcher [employer] Vito Mejia MD MD cha Pinkerton, Shawna sp Page, Corey, PA PA cp Waits, Jodi, RN RN jw7 Aleja Redman RN RN kc6 Amaris Canchola RN RN cm10 Corrections: (The following items were deleted from the chart) 19: 19:29 cp sp 19:34 19:31 215 sp sp 19:55 19:34 sp sp
--- NOTE | 2023-10-08 19:29 | ER ---
Nurse's Notes [facility] Name: Arias Spann Age: 58 yrs Sex: Male : 1965 Arrival Date: 10/08/2023 Time: 16:42 Bed 20 Private MD: Diagnosis: Left Peritonsillar Mass vs Abscess Presentation: 10/08 17:08 Chief complaint: Patient states: Sore throat, left ear pain, and neck pain X1 week. cm10 Coronavirus screen: Vaccine status: Patient reports being unvaccinated. Client denies travel out of the [place] in the last 14 days. Ebola Screen: Patient denies travel to an Ebola-affected area in the 21 days before illness onset. No symptoms or risks identified at this time. Initial Sepsis Screen: Does the patient meet any 2 criteria? HR > 90 bpm. Does the patient have a suspected source of infection? No. Patient's initial sepsis screen is negative. Risk Assessment: Do you want to hurt yourself or someone else? Patient reports no desire to harm self or others. Onset of symptoms was October 08, 2023. 17:08 Method Of Arrival: Ambulatory cm10 17:08 Acuity: EDMUND 3 cm10 Historical: - Allergies: 17:09 No Known Allergies; cm10 - PMHx: 17:09 HEP C; cm10 - Immunization history:: Adult Immunizations not up to date. - Social history:: Smoking status: Patient denies any tobacco usage or history of. Patient uses street drugs, marijuana. Screenin:36 [facility] ED Fall Risk Assessment (Adult) History of falling in the last 3 months, kc6 including since admission No falls in past 3 months (0 pts) Confusion or Disorientation No (0 pts) Intoxicated or Sedated No (0 pts) Impaired Gait No (0 pts) Mobility Assist Device Used No (0 pt) Altered Elimination No (0 pt) Score/Fall Risk Level 0 - 2 = Low Risk. Abuse screen: Denies threats or abuse. Denies injuries from another. Nutritional screening: No deficits noted. Tuberculosis screening: No symptoms or risk factors identified. Assessment: 17:37 General: Appears in no apparent distress. comfortable, well groomed, well developed, kc6 Behavior is calm, cooperative, appropriate for age, Reports feeling ill for. Pain: Complains of pain in neck. Neuro: Level of Consciousness is awake, alert, obeys commands, Oriented to person, place, time, situation, Appropriate for age. Cardiovascular: Capillary refill < 3 seconds. Respiratory: Reports shortness of breath Airway is patent Trachea midline Respiratory effort is even, unlabored, Respiratory pattern is regular, symmetrical, Breath sounds are clear bilaterally. GI: No signs and/or symptoms were reported involving the gastrointestinal system. : No signs and/or symptoms were reported regarding the genitourinary system. EENT: Throat is reddened on left with gag reflex present, Reports difficulty swallowing. Derm: No signs and/or symptoms reported regarding the dermatologic system. Skin is intact, is healthy with good turgor, Skin is pink, warm \T\ dry. Musculoskeletal: No signs and/or symptoms reported regarding the musculoskeletal system. Circulation, motion, and sensation intact. Capillary refill < 3 seconds, Range of motion: intact in all extremities. 18:37 Reassessment: Patient appears in no apparent distress at this time. No changes from kc6 previously documented assessment. Patient and/or family updated on plan of care and expected duration. Pain level reassessed. Patient is alert, oriented x 3, equal unlabored respirations, skin warm/dry/pink. 19:30 Reassessment: Patient appears in no apparent distress at this time. No changes from jw7 previously documented assessment. Patient and/or family updated on plan of care and expected duration. Pain level reassessed. Patient is alert, oriented x 3, equal unlabored respirations, skin warm/dry/pink. 20:30 Reassessment: Patient appears in no apparent distress at this time. No changes from jw7 previously documented assessment. Patient and/or family updated on plan of care and expected duration. Pain level reassessed. Patient is alert, oriented x 3, equal unlabored respirations, skin warm/dry/pink. 20:34 General: attempted to call report, Nurse will call back for Report. jw7 21:25 Reassessment: Patient appears in no apparent distress at this time. No changes from jw7 previously documented assessment. Patient and/or family updated on plan of care and expected duration. Pain level reassessed. Patient is alert, oriented x 3, equal unlabored respirations, skin warm/dry/pink. 21:28 General: Report given to ENOC Fitzgerald . jw7 Vital Signs: 17:08 BP 170 / 94; Pulse 111; Resp 18; Temp 98.1; Pulse Ox 98% on R/A; Weight 81.65 kg; cm10 Height 5 ft. 6 in. ; Pain 8/10; 17:38 BP 147 / 94; Pulse 103; Resp 16 S; Pulse Ox 98% on R/A; kc6 20:01 BP 143 / 95; Pulse 103; Resp 18 S; Pulse Ox 100% on R/A; jw7 21:29 BP 119 / 78; Pulse 96; Resp 17 S; Pulse Ox 95% on R/A; jw7 17:08 Body Mass Index 29.05 (81.65 kg, 167.64 cm) cm10 17:08 Pain Scale: Adult cm10 ED Course: 16:45 Patient arrived in ED. ts1 16:50 Vito Lopez PA is PHCP. cp 16:50 Vito Ash MD is Attending Physician. cp 17:09 Triage completed. cm10 17:09 Arm band placed on Patient placed in waiting room. 10 17:25 Aleja Redman RN is Primary Nurse. kc6 17:36 Inserted saline lock: 20 gauge in right antecubital area, using aseptic technique. kc6 Blood collected. Patient maintains SpO2 saturation greater than 95% on room air. 17:37 Patient has correct armband on for positive identification. Bed in low position. Call kc6 light in reach. Side rails up X 1. Adult w/ patient. Client placed on continuous cardiac and pulse oximetry monitoring. NIBP monitoring applied. 17:59 XRAY Chest (1 view) In Process Unspecified. EDMS 18:17 CT Soft Tissue Neck W/contr In Process Unspecified. EDMS 19:00 Report given to Liya Sheehan RN. 6 19:28 Mat Drake MD is Hospitalizing Provider. cp 20:04 Provided Education on: need for admit. jw 20:04 No provider procedures requiring assistance completed. Patient admitted, IV remains in jw7 place. 20:51 Primary Nurse role handed off by Aleja Redman RN as6 Administered Medications: 18:25 Drug: morphine IVP or IV 4 mg IVP once over 4 mins Route: IVP; Infused Over: 4 mins; kc6 Site: right antecubital; 19:09 Follow up: Response: No adverse reaction; Pain is decreased; RASS: Alert and Calm (0) kc6 18:26 Drug: Ondansetron IVP 4 mg IVP once; over 2 minutes Route: IVP; Site: right antecubital;kc6 19:10 Follow up: Response: No adverse reaction kc6 19:35 Drug: NS 0.9% IV 1000 ml IV at 1 bolus Per protocol; 1000 mL bolus Route: IV; Rate: 1 jw7 bolus; Site: right antecubital; 20:35 Follow up: Response: No adverse reaction; IV Status: Infusion continued upon admission; jw7 IV Intake: 600ml 19:35 Drug: Rocephin IV 1 grams IV at calculated rate once; Given slow IV push per pharmacy jw7 instructions Route: IV; Rate: calculated rate; Site: right antecubital; 20:04 Follow up: Response: No adverse reaction; IV Status: Completed infusion; IV Intake: [id number] 19:35 Drug: Decadron - Dexamethasone IVP 10 mg IVP once Route: IVP; Site: right antecubital; jw7 20:04 Follow up: Response: No adverse reaction jw7 19:50 Drug: Clindamycin IVPB 900 mg IVPB once over 30 mins; (mix in 50 mL) Route: IVPB; jw7 Infused Over: 30 mins; Site: right antecubital; 20:35 Follow up: Response: No adverse reaction; IV Status: Completed infusion; IV Intake: [id number] Medication: 20:04 VIS not applicable for this client. jw7 Intake: 20:04 IV: 50ml; Total: 50ml. jw7 20:35 IV: 50ml; Total: 100ml. jw7 20:35 IV: 600ml; Total: 700ml. jw7 Outcome: 19:29 Decision to Hospitalize by Provider. cp 21:30 Admitted to Med/surg accompanied by tech, via wheelchair, room 216, Report called to yannick Fitzgerald 21:30 Condition: stable 21:30 Instructed on the need for admit, Demonstrated understanding of instructions, 21:51 Patient left the ED. jw7 Signatures: Dispatcher [employer] EDMS Vito Lopez PA PA cp Slawson, Ashby RN RN as6 Liya Beach RN RN jw7 Aleja Redman RN RN kc6 Suzanne Kramer PAS PAS ts1 Sushant, Amaris, RN RN cm10
[2023-10-08] MEDS ORDERED: MORPHINE 2 MG/ML SYR IV PRN (19:38)
[2023-10-08] MEDS ORDERED: ONDANSETRON 4 MG/2 ML VIAL IV PRN (19:38)
[2023-10-08] MEDS ORDERED: ACETAMINOPHEN 500 MG TAB PO PRN (19:38)
--- NOTE | 2023-10-08 20:12 | P.HP ---
Certification for Inpatient Patient admitted to: Inpatient With expected LOS: >2 Midnights Patient will require the following post-hospital care: None Practitioner: I am a practitioner with admitting privileges, knowledge of patient current condition, hospital course, and medical plan of care. Services: Services provided to patient in accordance with Admission requirements found in Title 42 Section 412.3 of the Code of Federal Regulations Patient History Date of Service: 10/08/23 Reason for admission: Sore Throat History of Present Illness: 58-year-old male with no significant past medical history brought to ER with sore throat which has been going on for the last few days. Denies any fever or chills. Started insidiously and has been progressively worsening. Difficulty in swallowing. Denies any previous hoarseness of voice. Denies any shortness of breath. Patient denies any nausea or vomiting. No chest pain or shortness of breath. Patient was assessed in the ER and found to have possible tonsillar abscess/mass and was admitted for further management Allergies No Known Allergies Allergy (Verified 10/08/23 22:06) Home medications list reviewed: Yes - Past Medical/Surgical History Past Medical History: Reviewed- Non-Contributory Past Surgical History: Reviewed- Non-Contributory -: Shoulder surgery - Family History Family History: Reviewed- Non-Contributory - Family History Mother -: Other (see notes) Notes: tumors in the neck - Social History Smoking Status: Never smoker Review of Systems 10-point ROS is otherwise unremarkable General: Weakness, Malaise ENT: Throat Pain, Throat Swelling Respiratory: Unremarkable Cardiovascular: Unremarkable Gastrointestinal: Unremarkable Genitourinary: Unremarkable Musculoskeletal: Unremarkable Integumentary: Unremarkable Physical Examination - Vital Signs Temperature: 98.4 F Blood Pressure: 170/94 Pulse: 102 Respirations: 18 Pulse Ox (%): 98 - Physical Exam General: Alert, In no apparent distress, Oriented x3 HEENT: Atraumatic, Normocephalic Neck: Supple Respiratory: Clear to auscultation bilaterally, Normal air movement Cardiovascular: Regular rate/rhythm, Normal S1 S2 Gastrointestinal: Soft and benign, W/out hepatosplenomegaly, No ascites Musculoskeletal: No clubbing, No swelling Integumentary: No rashes, No breakdown Neurological: Normal gait, Normal strength at 5/5 x4 extr, Sensation intact, Cranial nerves 3-12 intact, Normal affect Lymphatics: No axilla or inguinal lymphadenopathy - Studies Laboratory Data (last 24 hrs) 10/08/23 10/08/23 10/08/23 17:30 17:30 17:30 WBC 14.20 H Hgb 17.8 Hct 53.0 H Plt Count 267 PT 13.4 H INR 1.23 Sodium 133 L Potassium 4.4 BUN 6 L Creatinine 0.90 Glucose 92 Assessment and Plan - Problems (Diagnosis) (1) Tonsillar abscess Current Visit: Yes Status: Acute Plan: Started on IV antibiotics Pain control ENT consulted Monitor closely Will obtain cultures Change antibiotic as per sensitivity (2) Leucocytosis Current Visit: Yes Status: Acute Plan: Leukocytosis noted Obtain cultures On antibiotics Will monitor CBC in the a.m. (3) Hyponatremia Current Visit: Yes Status: Acute Plan: Hyponatremia noted Possibly due to dehydration IV hydration Monitor electrolytes and replace accordingly Discharge Plan: Home - Advance Directives Does patient have a Living Will: No Does patient have a Durable POA for Healthcare: No - Code Status/Comfort Care Code Status: Full Code Time Spent Managing Pts Care (In Minutes): 58
[2023-10-08] MEDS ORDERED: VANCOMYCIN 1 GM in NA CHLORIDE 0.9% 250 ML IVPB SCH (20:32)
[2023-10-08] MEDS ORDERED: VANCOMYCIN 2 GM in NA CHLORIDE 0.9% 500 ML IVPB ONE (22:00)
[2023-10-08 22:38] VITALS: BMI 25.9
[2023-10-08] MEDS ORDERED: VANCOMYCIN 500 MG/VIAL ONE (22:42)
[2023-10-08] MEDS ORDERED: NA CHLORIDE 0.9% 250 ML ONE (22:43)
[2023-10-08] MEDS: NA CHLORIDE 0.9% 1,000 ML IV SCH (22:48)
[2023-10-08] MEDS ORDERED: VANCOMYCIN 1.25 GM in NA CHLORIDE 0.9% 250 ML IVPB ONE (23:00)
[2023-10-09] MEDS: METHYLPREDNISOLONE 40 MG INJ IV SCH ×3 (01:11→16:40)
[2023-10-09] MEDS: PIPER TAZO 3.375 GM in NA CHLORIDE 0.9% 100 ML IV SCH ×3 (01:11→15:36)
[2023-10-09 05:01] LABS: Absolute Lymphocytes (CBC) 1.3 K/uL (0.7-4.9); Hematocrit 46.7 % (39.6-49.0); Lymphocytes % 17.5 % (15.3-44.8); MCV 92.2 fL (80-100); MPV 8.7 fL (7.6-11.3); Platelets 235 thou/uL (152-406); RBC Red Blood Cell Count 5.07 M/uL (4.33-5.43)
[2023-10-09] MEDS: NA CHLORIDE 0.9% 1,000 ML IV SCH ×2 (05:04→11:06)
[2023-10-09 05:30] LABS: Albumin 2.2 g/dL (3.4-5.0); Bilirubin Total 0.9 mg/dL (0.2-1.0); Potassium 4.7 mEq/L (3.5-5.1)
[2023-10-09] MEDS ORDERED: VANCOMYCIN 1.25 GM in NA CHLORIDE 0.9% 250 ML IVPB SCH ×2 (09:00→17:00)
--- NOTE | 2023-10-09 13:54 | CON ---
Date of Consultation: 10/09/2023 Chief Complaint: Acute onset left-sided sore throat. History Of Present Illness: The patient is a 58-year-old male with no significant past medical histo ry, who was brought to the emergency room with acute onset of left-sided sore throat, extending to th e left ear that started approximately 1 week ago and progressively worsened over the last [address] scan demonstrated diffuse left tonsillar swelling, possible mass, possible fluid collection, thus I was consulted for further evaluation and treatment. The patient was subsequently admitted and plac ed on IV Zosyn and vancomycin as well as steroids. Upon arrival to bedside, the patient is in no acu te distress and he states that compared to admission his swallowing is much improved on the antibioti cs and steroids. He currently denies any fever or chills. He has been around family members who hav e been ill recently and he believes that he caught the infection from one of them. He denies any ashley rseness or shortness of breath, nausea, or vomiting. Overall, the patient feels much improved since starting antibiotics. No other ENT complaints today. Past Medical History: None. Past Surgical History: Shoulder surgery. Family History: Noncontributory. Social History: Denies tobacco, alcohol, or illicit drugs. Allergies: NO KNOWN DRUG ALLERGIES. Home Medications: None. Review of Systems: General: Improved weakness and malaise. Head: Atraumatic. Denies headache. Eyes: Denies eye drainage, blurred or double vision. Ears: Positive for left ear pain. Negative for otorrhea or hearing loss. Nose: Negative for rhinorrhea, postnasal drip, or congestion. Throat: Positive for left-sided throat swelling and pain, improved from admission. Respiratory: Negative for shortness of breath. Neck: Negative for lymph node enlargement, pain, or swelling. Physical Examination: Vital Signs: Stable. General: The patient is awake, alert, and oriented to person, place, and time and he is communicatin g well with no evidence of muffled voice. Head: Atraumatic, normocephalic. Ears: Patent. External auditory canals, tympanic membranes intact with diffuse scarring of the tymp anic membranes. Nose: Midline septum. Moist intranasal mucosa and no obstruction. Throat: Mild diffuse wound noted over the left tonsil with no rosa evidence of mass or exophytic tu mor or ulceration. The patient is mildly tender to palpation. No definitive fluid collection palpat ed. Neck: Supple. Trachea midline. No lymphadenopathy or thyromegaly palpated. Imaging Data: CT exam of the soft tissue neck with contrast revealed diffuse swelling of the left to nsil measuring approximately 2.5 cm with a fluid collection measuring about 1.2 cm. Left maxillary s inus opacification. Rest of the sinuses are clear and no evidence of mastoid effusion. Laboratory Data: White blood cell count 14.2, hemoglobin 17.8, hematocrit 53.0, platelet count 267. Sodium is 133, BUN is 6. Diagnoses: 1.Acute left peritonsillar abscess, much improved since admission, on IV Zosyn and vancomycin. 2.Acute left maxillary sinusitis. Recommendations: 1.The patient is much improved since admission, recommend continuing IV antibiotics and steroids at this time and we will monitor. 2.Recommend converting to outpatient clindamycin 300 mg t.i.d. for 10 days and a Medrol Dosepak. 3.May start a liquid and soft diet as tolerated and advance as tolerated. 4.Recommend outpatient followup in 2-4 weeks. KD/MODL Voice ID: [id number] Report ID: [id number]
[2023-10-09] MEDS ORDERED: dexAMETHasone 4 MG/ML VIAL IV ONE (16:00)
[2023-10-09 16:34] VITALS: BP 126/71; TEMP 97.4
--- NOTE | 2023-10-09 16:58 | EKG ---
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
[2023-10-09 20:39] VITALS: O2SAT 94
== END 2023-10-09 20:09 | disposition home or self-care (01) | DRG 153 ==
LOC: ER 16:42 → ERHOLD 19:38 → 2ND 19:59
PROVIDERS: ADMIT Family Medicine; ATTEND Hospitalist
DX: J36 Peritonsillar abscess (principal); E87.1 Hypo-osmolality and hyponatremia; J01.00 Acute maxillary sinusitis, unspecified; H92.02 Otalgia, left ear; R53.1 Weakness; R53.81 Other malaise; E86.0 Dehydration; B19.20 Unspecified viral hepatitis C without hepatic coma; F12.90 Cannabis use, unspecified, uncomplicated
CPT/HCPCS: 36415; 70491; 71045; 80048; 80053; 83605; 85025; 85610; 87040; 93005; 94760; 96365; 96375; 99285; J0696; J1100; J2405; J2543; J2920; J7030; J7040; J7050; Q9967

== ENCOUNTER → 2023-10-21 | Emergency (ER) | payer SELFPAY ==
[~2023-10-21] MED LIST: CEFTRIAXONE 1000 MG/VIAL ONE; CLINDAMYCIN 900MG/D5W 900 MG/50 ML IVPB IV ONE; NA CHLORIDE 0.9% 1,000 ML ONE; dexAMETHasone 10 MG/ML VIAL ONE
[2023-10-22 00:46] LABS: Bilirubin Total 1.6 mg/dL (0.2-1.0); Potassium 3.5 mEq/L (3.5-5.1); Protein, Total 8.1 g/dL (6.4-8.2)
[2023-10-22 00:59] LABS: SARS-CoV-2 Antigen Rapid Res Negative (Negative)
[2023-10-22 01:13] LABS: Absolute Lymphocytes (CBC) 3.2 K/uL (0.7-4.9); Hematocrit 48.3 % (39.6-49.0); Lymphocytes % 30.8 % (15.3-44.8); MCV 92.2 fL (80-100); MPV 9.4 fL (7.6-11.3); Platelets 213 thou/uL (152-406); RBC Red Blood Cell Count 5.23 M/uL (4.33-5.43)
--- NOTE | 2023-10-22 01:56 | ER ---
Nurse's Notes [facility] Name: Arias Spann Age: 58 yrs Sex: Male : 1965 Arrival Date: 10/21/2023 Time: 23:18 Bed 12 Private MD: Diagnosis: Acute recurrent tonsillitis, unspecified;Streptococcal tonsillitis;Peritonsillar abscess-improved 1.6 cm x 1.3 cm Presentation: 10/21 23:31 Chief complaint: Patient states: sore throat x2 weeks. Coronavirus screen: At this as6 time, the client does not indicate any symptoms associated with coronavirus-19. Ebola Screen: No symptoms or risks identified at this time. Initial Sepsis Screen: Does the patient meet any 2 criteria? No. Patient's initial sepsis screen is negative. Does the patient have a suspected source of infection? No. Patient's initial sepsis screen is negative. Risk Assessment: Do you want to hurt yourself or someone else? Patient reports no desire to harm self or others. Onset of symptoms was October 07, 2023. 23:31 Acuity: EDMUND 4 as6 23:31 Method Of Arrival: Ambulatory as6 Triage Assessment: 23:35 General: Appears in no apparent distress. Behavior is calm, cooperative. Pain: as6 Complains of pain in throat. EENT: Reports pain since sore throat. Respiratory: Airway is patent Trachea midline Respiratory effort is even, unlabored, Respiratory pattern is regular, symmetrical. Historical: - Allergies: 23:35 No Known Allergies; as6 - PMHx: 23:35 HEP C; as6 - PSHx: 23:35 None; as6 - Immunization history:: Adult Immunizations up to date. - Social history:: Smoking status: Patient denies any tobacco usage or history of. Screenin:36 [facility] ED Fall Risk Assessment (Adult) Score/Fall Risk Level 0 - 2 = Low Risk. Abuse as6 screen: Denies threats or abuse. Denies injuries from another. Nutritional screening: No deficits noted. Tuberculosis screening: No symptoms or risk factors identified. Assessment: 10/22 00:00 Reassessment: No changes from previously documented assessment. Patient and/or family vc1 updated on plan of care and expected duration. Pain level reassessed. Patient is alert, oriented x 3, equal unlabored respirations, skin warm/dry/pink. 02:00 Reassessment: Patient and/or family updated on plan of care and expected duration. Pain vc1 level reassessed. Patient is alert, oriented x 3, equal unlabored respirations, skin warm/dry/pink. Patient states feeling better. Patient states symptoms have improved. Vital Signs: 10/21 23:31 BP 129 / 89; Pulse 96; Resp 18 S; Temp 98(O); Pulse Ox 95% on R/A; Weight 79.38 kg (R); as6 Height 5 ft. 2 in. (R); Pain 8/10; 10/22 02:21 BP 98 / 71; Pulse 97; Resp 16; Pulse Ox 95% ; vc1 10/21 23:31 Body Mass Index 32.01 (79.38 kg, 157.48 cm) as6 10/21 23:31 Pain Scale: Adult as6 ED Course: 10/21 23:30 Patient arrived in ED. jj6 23:31 Arm band placed on. as6 23:35 Triage completed. as6 23:36 Bed in low position. Call light in reach. as6 23:37 Vito Ash MD is Attending Physician. sahil 23:43 SARS RAPID Sent. as6 23:43 Flu Sent. as6 23:43 Strep Sent. as6 10/22 00:13 Comprehensive Metabolic Panel Sent. rv1 00:13 CBC with Diff Sent. rv1 00:13 Inserted saline lock: 20 gauge in right antecubital area, using aseptic technique. rv1 Blood collected. 01:18 Soft Tissue Neck W/Contr CT In Process Unspecified. EDMS 01:56 Wendy Montiel MD is Referral Physician. sahil 02:21 Annamarie Jacob RN is Primary Nurse. vc1 02:22 No provider procedures requiring assistance completed. IV discontinued, intact, vc1 bleeding controlled, No redness/swelling at site. Pressure dressing applied. 02:23 Provided Education on: Call Dr. Montiel's office Monday and take all antibiotic until vc1 finished.. Administered Medications: 01:00 Drug: Rocephin IV 1 grams IV at per protocol once; Given slow IV push per pharmacy vc1 instructions Route: IV; Rate: per protocol; Site: right antecubital; 01:01 Follow up: Response: No adverse reaction; Marked relief of symptoms; IV Status: vc1 Completed infusion; IV Intake: 10ml 01:00 Drug: NS 0.9% IV 1000 ml IV at 1 bolus Per protocol; 1000 mL bolus Route: IV; Rate: 1 vc1 bolus; Site: right antecubital; 02:24 Follow up: Response: No adverse reaction; IV Status: Completed infusion; IV Intake: vc1 1000ml 01:00 Drug: Decadron - Dexamethasone IVP 10 mg IVP once Route: IVP; Site: right antecubital; vc1 02:24 Follow up: Response: No adverse reaction; Marked relief of symptoms vc1 01:00 Drug: Clindamycin IVPB 900 mg IVPB once over 30 mins; (mix in 50 mL) Route: IVPB; vc1 Infused Over: 30 mins; Site: right antecubital; 02:24 Follow up: Response: No adverse reaction; Marked relief of symptoms; IV Status: vc1 Completed infusion; IV Intake: 50ml Medication: 10/21 23:36 VIS not applicable for this client. as6 Intake: 10/22 01:01 IV: 10ml; Total: 10ml. vc1 02:24 IV: 50ml; Total: 60ml. vc1 02:24 IV: 1000ml; Total: 1060ml. vc1 Outcome: 01:56 Discharge ordered by . sahil 02:22 Discharged to home ambulatory, vc1 02:22 Condition: good 02:22 Discharge instructions given to patient, Instructed on discharge instructions, follow up and referral plans. medication usage, Demonstrated understanding of instructions, follow-up care, medications, Prescriptions given X 2, 02:24 Patient left the ED. vc1 Signatures: Dispatcher [employer] EDVito Andre MD MD cha Jeffries, Jennifer jj6 Mike Del Real RN RN as6 Annamarie Jacob RN RN vc1 Lluvia Vallejo
--- NOTE | 2023-10-22 01:56 | EDPHYS ---
Physician Documentation [facility] Name: Arias Spann Age: 58 yrs Sex: Male : 1965 Arrival Date: 10/21/2023 Time: 23:18 Bed 12 Private MD: ED Physician Vito Ash HPI: 10/22 00:02 This 58 yrs old Male presents to ER via Ambulatory with complaints of Sore sahil Throat. 00:02 The patient presents with sore throat. The patient describes throat pain as burning, sahil constant. Onset: The symptoms/episode began/occurred 2 day(s) ago. Severity of symptoms: At their worst the symptoms were mild, moderate, in the emergency department the symptoms are unchanged. Modifying factors: The symptoms are alleviated by nothing, the symptoms are aggravated by swallowing. Associated signs and symptoms: The patient has no apparent associated signs or symptoms. The patient has experienced a previous episode, last week. Historical: - Allergies: 10/21 23:35 No Known Allergies; as6 - PMHx: 23:35 HEP C; as6 - PSHx: 23:35 None; as6 - Immunization history:: Adult Immunizations up to date. - Social history:: Smoking status: Patient denies any tobacco usage or history of. ROS: 10/22 00:03 Constitutional: Negative for fever, chills, and weight loss, Eyes: Negative for injury, sahil pain, redness, and discharge, Neck: Negative for injury, pain, and swelling, Cardiovascular: Negative for chest pain, palpitations, and edema, Respiratory: Negative for shortness of breath, cough, wheezing, and pleuritic chest pain, Abdomen/GI: Negative for abdominal pain, nausea, vomiting, diarrhea, and constipation, Back: Negative for injury and pain, : Negative for injury, bleeding, discharge, and swelling, MS/Extremity: Negative for injury and deformity, Skin: Negative for injury, rash, and discoloration, Neuro: Negative for headache, weakness, numbness, tingling, and seizure, Psych: Negative for depression, anxiety, suicide ideation, homicidal ideation, and hallucinations, Allergy/Immunology: Negative for hives, rash, and allergies, Endocrine: Negative for neck swelling, polydipsia, polyuria, polyphagia, and marked weight changes, Hematologic/Lymphatic: Negative for swollen nodes, abnormal bleeding, and unusual bruising, ENT: Positive for difficulty swallowing, Exam: 00:03 Constitutional: This is a well developed, well nourished patient who is awake, alert, sahil and in no acute distress. Head/Face: Normocephalic, atraumatic. Eyes: Pupils equal round and reactive to light, extra-ocular motions intact. Lids and lashes normal. Conjunctiva and sclera are non-icteric and not injected. Cornea within normal limits. Periorbital areas with no swelling, redness, or edema. Neck: Trachea midline, no thyromegaly or masses palpated, and no cervical lymphadenopathy. Supple, full range of motion without nuchal rigidity, or vertebral point tenderness. No Meningismus. Chest/axilla: Normal chest wall appearance and motion. Nontender with no deformity. No lesions are appreciated. Cardiovascular: Regular rate and rhythm with a normal S1 and S2. No gallops, murmurs, or rubs. Normal PMI, no JVD. No pulse deficits. Respiratory: Lungs have equal breath sounds bilaterally, clear to auscultation and percussion. No rales, rhonchi or wheezes noted. No increased work of breathing, no retractions or nasal flaring. Abdomen/GI: Soft, non-tender, with normal bowel sounds. No distension or tympany. No guarding or rebound. No evidence of tenderness throughout. Back: No spinal tenderness. No costovertebral tenderness. Full range of motion. Male : Normal genitalia with no discharge or lesions. Skin: Warm, dry with normal turgor. Normal color with no rashes, no lesions, and no evidence of cellulitis. MS/ Extremity: Pulses equal, no cyanosis. Neurovascular intact. Full, normal range of motion. Neuro: Awake and alert, GCS 15, oriented to person, place, time, and situation. Cranial nerves II-XII grossly intact. Motor strength 5/5 in all extremities. Sensory grossly intact. Cerebellar exam normal. Normal gait. Psych: Awake, alert, with orientation to person, place and time. Behavior, mood, and affect are within normal limits. 00:03 ENT: Posterior pharynx: Tonsils: enlarged on the left, with erythema, Uvula: normal, midline, non-edematous, no erythema, swelling, that is mild, erythema, that is mild, exudate, is not appreciated, peritonsillar mass, is not appreciated, pooling of secretions, is not appreciated, Vital Signs: 10/21 23:31 BP 129 / 89; Pulse 96; Resp 18 S; Temp 98(O); Pulse Ox 95% on R/A; Weight 79.38 kg (R); as6 Height 5 ft. 2 in. (R); Pain 8/10; 10/22 02:21 BP 98 / 71; Pulse 97; Resp 16; Pulse Ox 95% ; vc1 10/21 23:31 Body Mass Index 32.01 (79.38 kg, 157.48 cm) as6 10/21 23:31 Pain Scale: Adult as6 MDM: 10/21 23:37 Patient medically screened. [facility] 10/22 00:04 Differential diagnosis: Allergic rhinitis, apthous stomatitis, echovirus infection, sahil group A strep tonsillitis, influenza, laryngitis, peritonsillar abscess pharyngitis, retropharyngeal abcess squamous cell carcinoma tonsillitis, upper respiratory infection, uvulitis. Data reviewed: vital signs, nurses notes, lab test result(s), radiologic studies, CT scan. Consideration of Admission/Observation Escalation of care including admission/observation considered. I considered the following discharge prescriptions or medication management in the emergency department Medications were administered in the Emergency Department. See MAR. Independent interpretation of the following test(s) in the Emergency Department CT Scan: My interpretation is ct soft. Test considered but Not performed: X-ray: no cxr. 10/21 23:37 Order name: SARS RAPID; Complete Time: 01:23 [facility] 10/21 23:37 Order name: Flu; Complete Time: : [facility] 10/21 23:37 Order name: Strep; Complete Time: 00:59 [facility] 10/22 00:02 Order name: CBC with Diff; Complete Time: 01:53 [facility] 10/22 00:02 Order name: Comprehensive Metabolic Panel; Complete Time: 00:59 [facility] 10/22 00:02 Order name: Soft Tissue Neck W/Contr CT [facility] 10/22 00:04 Order name: IV Start; Complete Time: 00:12 vc1 Administered Medications: 01:00 Drug: Rocephin IV 1 grams IV at per protocol once; Given slow IV push per pharmacy vc1 instructions Route: IV; Rate: per protocol; Site: right antecubital; 01:01 Follow up: Response: No adverse reaction; Marked relief of symptoms; IV Status: vc1 Completed infusion; IV Intake: 10ml 01:00 Drug: NS 0.9% IV 1000 ml IV at 1 bolus Per protocol; 1000 mL bolus Route: IV; Rate: 1 vc1 bolus; Site: right antecubital; 02:24 Follow up: Response: No adverse reaction; IV Status: Completed infusion; IV Intake: vc1 1000ml 01:00 Drug: Decadron - Dexamethasone IVP 10 mg IVP once Route: IVP; Site: right antecubital; vc1 02:24 Follow up: Response: No adverse reaction; Marked relief of symptoms vc1 01:00 Drug: Clindamycin IVPB 900 mg IVPB once over 30 mins; (mix in 50 mL) Route: IVPB; vc1 Infused Over: 30 mins; Site: right antecubital; 02:24 Follow up: Response: No adverse reaction; Marked relief of symptoms; IV Status: vc1 Completed infusion; IV Intake: 50ml Disposition Summary: 10/22/23 01:56 Discharge Ordered Notes: Location: Home sahil Problem: new sahil Symptoms: have improved sahil Condition: Stable sahil Diagnosis - Acute recurrent tonsillitis, unspecified sahil - Streptococcal tonsillitis sahil - Peritonsillar abscess - improved 1.6 cm x 1.3 cm sahil Followup: sahil - With: Private Physician - When: 2 - 3 days - Reason: Recheck today's complaints, Continuance of care, Re-evaluation by your physician Followup: sahil - With: Wendy Montiel MD - When: 2 - 3 days - Reason: Recheck today's complaints, Continuance of care, Re-evaluation by your physician Discharge Instructions: - Discharge Summary Sheet sahil - Peritonsillar Abscess sahil - Sore Throat sahil - Strep Throat, Adult sahil - Tonsillitis sahil - Tonsillitis, [id number] sahil - Strep Throat, Adult, [id number] sahil - Peritonsillar Abscess, [id number] sahil - Sore Throat, [id number] sahil Forms: - Medication Reconciliation Form sahil - Thank You Letter sahil - Antibiotic Education sahil - Prescription Opioid Use sahil - Patient Portal Instructions sahil - Leadership Thank You Letter [facility] Prescriptions: - dexamethasone 2 mg Oral tablet - take 1 tablet ORAL route every 12 hours; 10 tablet; Refills: 0, Product [facility] Selection Permitted - Clindamycin HCl 300 mg Oral Capsule - take 1 capsule ORAL route every 6 hours for 10 days; 40 capsule; Refills: 0, sahil Product Selection Permitted Signatures: Dispatcher [employer] Vito Mejia, Mike Hernandez MD, cha RN RN as6 Annamarie Jacob RN RN vc1
[2023-10-22 02:50] VITALS: BP 98/71; TEMP 98; O2SAT 95
--- NOTE | 2023-10-23 11:47 | RAD REPORT ---
EXAM DESCRIPTION: CT - Soft Tissue Neck W/Contr - 10/22/2023 7:18 am CLINICAL HISTORY: The patient is 58 years old and is Male; PAIN TECHNIQUE: Axial computed tomography images of the neck with intravenous contrast. Sagittal and co parris reformatted images were created and reviewed. This CT exam was performed using one or more of the following dose reduction techniques: automated exposure control, adjustment of the mA and/or k V according to patient size, and/or use of iterative reconstruction technique. DLP: 227 mGy*cm COMPARISON: CT soft tissue neck dated 10/08/2023. FINDINGS: OROPHARYNX: Improved left tonsillitis with decreased size of peritonsillar abscess measu ring 1.6 x 1.3 cm. HYPOPHARYNX: Unremarkable. LARYNX: Unremarkable. Normal epiglottis. TRACHEA: Unremarkable. RETROPHARYNGEAL SPACE: Unremarkable. SUBMANDIBULAR/PAROTID GLANDS: Unremarkable. Glands are normal in size. THYROID: Unremarkable. No enlarged or calcified nodules. BONES/JOINTS: Multilevel degenerative changes of the cervical spine. No acute fracture. SOFT TISSUES: Unremarkable. VASCULATURE: No acute findings. LYMPH NODES: Mild left cervical lymphadenopathy. LUNG APICES: Unremarkable as visualized. IMPRESSION: 1. Improved left tonsillitis with decreased size of peritonsillar abscess measuring 1. 6 x 1.3 cm. 2. Mild left cervical lymphadenopathy. 3. Multilevel degenerative changes of the cervical spine. Electronically signed by: Pepe Skinner DO 10/22/2023 01:44 AM TRAUMA DOCTOR Due to temporary technical issues with the PACS/Fluency reporting system, reports are being signed by the in house radiologist without review as a courtesy to ensure prompt reporting. The interpreting r adiologist is fully responsible for the content of the report.
== END ==
LOC: ER 23:18
DX: J03.00 Acute streptococcal tonsillitis, unspecified (principal); Z11.52 Encounter for screening for COVID-19
CPT/HCPCS: 36415; 70491; Q9967